=== PATIENT | female | born 1970 | race Caucasian/White ===

== ENCOUNTER 2024-03-10 18:31 | Emergency (ER) | payer BC ==
[2024-03-10 19:13] LABS: BASOPHILS % (AUTO) 0.6 % (0-1); EOSINOPHILS # (AUTO) 0.2 X10'3 (0-0.9); EOSINOPHILS % (AUTO) 2.7 % (0-6); HEMOGLOBIN 15.4 g/dl (12.0-16.0); LYMPHOCYTES # (AUTO) 2.3 X10'3 (1.1-4.8); MEAN CORPUSCULAR HEMOGLOBIN 32.6 PG (27.0-31.0); MEAN CORPUSCULAR HGB CONC 34.2 g/dL (33.0-36.5); MEAN CORPUSCULAR VOLUME 95.3 FL (78-98); MEAN PLATELET VOLUME 8.2 FL (7.4-10.4); MONOCYTES # (AUTO) 0.8 X10'3 (0-0.9); MONOCYTES % (AUTO) 10.4 % (2-12); NEUTROPHILS # (AUTO) 4.1 X10'3 (1.8-7.7); NEUTROPHILS % (AUTO) 55.3 % (42-75); PLATELET COUNT 243 X10'3 (140-440); RED BLOOD COUNT 4.72 X10'6 (4.20-5.60); RED CELL DISTRIBUTION WIDTH 12.2 % (11.5-14.5); WHITE BLOOD COUNT 7.3 X10'3 (4.5-11.0)
[2024-03-10 19:24] LABS: APTT 26 SECONDS (22-32); PROTHROMBIN TIME 10.4 SECONDS (9.0-12.0)
[2024-03-10 19:28] LABS: ALBUMIN 3.3 G/DL (3.4-5.0); ANION GAP 7 (8-16); BLOOD UREA NITROGEN 12 MG/DL (7-18); BUN/CREATININE RATIO 14.1 (10.0-20.0); CHLORIDE 108 MMOL/L (99-107); CREATININE 0.85 MG/DL (0.40-0.90); ETHANOL < 10 MG/DL (<10); GLUCOSE 90 MG/DL (70-104); POTASSIUM 3.9 MMOL/L (3.5-5.1); SODIUM 144 MMOL/L (135-145); TOTAL CARBON DIOXIDE 28.6 MMOL/L (24-32); eGFR 69 ML/MIN
[2024-03-10] MEDS ORDERED: LIDOcaine 0.5% W/epiNEPHrine 1:200,000 50ml vial IJ ONE (19:45)
[2024-03-10] MEDS: LIDOcaine 1% W/epiNEPHrine 1:100,000 20ml vial IJ ONE (20:03)
[2024-03-10] MEDS ORDERED: CYCL-1 PO (20:05)
[2024-03-10] MEDS: TETanus/Pertussis (Acell)/Diphther VAC/PF (Tdap-Adult) 0.5ml syringe IMVAC ONE (20:06)
[2024-03-10] MEDS: ondansetron/PF 4mg/2ml inj IV ONE (20:06)
[2024-03-10] MEDS: ketorolac trometh 15mg/ml vial 15 MG/ML ML IV ONE (20:06)
[2024-03-10] MEDS: cyclobenzaprine 10mg tablet PO ONE (20:07)
[2024-03-10 20:34] VITALS: BP 121/79; PULSE 88; RESP 16; TEMP 97.6; O2SAT 99
== END 2024-03-10 20:48 | disposition home or self-care (01) ==
LOC: ER 18:31
DX: S01.01XA Laceration without foreign body of scalp, initial encounter (principal); S06.0X0A Concussion without loss of consciousness, initial encounter; I10 Essential (primary) hypertension; G89.29 Other chronic pain; E03.9 Hypothyroidism, unspecified; R79.1 Abnormal coagulation profile; Z79.899 Other long term (current) drug therapy; W19.XXXA Unspecified fall, initial encounter; Y93.K1 Activity, walking an animal; Y92.89 Other specified places as the place of occurrence of the external cause; Y99.8 Other external cause status
CPT/HCPCS: 12002; 36415; 70450; 71045; 72125; 73030; 80048; 80320; 82948; 84484; 85025; 85610; 85730; 90471; 90715; 93005; 96374; 99285; J1885; J7030; A6449